=== PATIENT | female | born 1970 | race Caucasian/White ===

== ENCOUNTER → 2018-09-09 | Outpatient (CLI) | payer OTHER ==
[~2018-09-09] MED LIST: NORE1TAB37 PO
== END | disposition home or self-care (01) ==
LOC: PETCFH 09:05
PROVIDERS: ATTEND Physician Assistant
DX: K30 Functional dyspepsia (principal)
CPT/HCPCS: 78264; A9541

== ENCOUNTER 2018-10-06 13:45 | Outpatient (CLI) | payer OTHER | END 2018-10-06 23:59 | disposition home or self-care (01) | LOC: CFH 13:45 | PROVIDERS: ATTEND Nurse Practitioner Family | DX: K76.89 Other specified diseases of liver (principal) | CPT/HCPCS: 74176 ==